=== PATIENT | female | born 1990 | race African-American/Black ===

== ENCOUNTER 2018-04-29 07:59 | Emergency (ER) | payer OTHER ==
[2018-04-29] MEDS: FAMOTIDINE 20 MG TAB PO (08:39)
[2018-04-29] MEDS: METHYLPREDNISOLONE 125 MG INJ IM (08:40)
[2018-04-29] MEDS: DIPHENHYDRAMINE 50 MG INJ IM (08:43)
== END 2018-04-29 09:36 | disposition home or self-care (01) ==
LOC: FTE 07:59
DX: R22.0 Localized swelling, mass and lump, head (principal); H02.842 Edema of right lower eyelid; H02.845 Edema of left lower eyelid
CPT/HCPCS: 96372; 99284-25

== ENCOUNTER 2019-03-12 11:42 | Emergency (ER) | payer OTHER ==
[2019-03-12] MEDS: IBUPROFEN 800 MG TAB PO (12:32)
== END 2019-03-12 12:38 | disposition home or self-care (01) ==
LOC: FTE 11:42
DX: M54.2 Cervicalgia (principal); M54.9 Dorsalgia, unspecified
CPT/HCPCS: 99283